=== PATIENT | female | born 1955 | race Caucasian/White ===

== ENCOUNTER 2020-10-02 11:53 | Emergency (ER) | payer OTHER ==
[~2020-10-02] VITALS: Ht 157.5 cm; Wt 77.1 kg
[2020-10-02 12:53] LABS: Basophils # (auto) 0 10 ^3/uL (0-0.2); Basophils % (auto) 0.9 % (0.0-2.0); Eosinophils # (auto) 0.1 10 ^3/uL (0-0.8); Eosinophils % (auto) 1.1 % (0.0-7.0); Hemoglobin 12.1 g/dL (12.2-16.2); Lymphocytes # (auto) 1.2 10 ^3/uL (0.4-5.4); Lymphocytes % (auto) 24.4 % (10.0-50.0); Mean Corpuscular Hemoglobin 29.7 pg (28.0-32.0); Mean Corpuscular Hgb Conc. 33.6 g/dL (32.0-36.0); Mean Corpuscular Volume 88.4 fL (80.0-100.0); Monocytes # (auto) 0.6 10 ^3/uL (0-1.3); Neutrophils # (auto) 3.1 10 ^3/uL (1.6-8.6); Neutrophils % (auto) 61.6 % (37.0-80.0); Platelet Count (auto) 280 10^3/uL (140-450); Red Blood Cells 4.07 10^6/uL (4.0-5.20); Red Cell Distribution Width 14.8 % (11.8-14.3); White Blood Cell 5.1 10^3/uL (4.4-10.8)
[2020-10-02 13:08] LABS: Albumin 3.6 g/dL (3.4-5.0); Anion Gap 4 (5-15); Blood Urea Nitrogen 17 mg/dL (7-18); Calcium 8.5 mg/dL (8.5-10.1); Carbon Dioxide 28 mmol/L (21-32); Chloride 108 mmol/L (98-107); Glucose 112 mg/dL (74-106); Magnesium 2.2 mg/dL (1.6-2.6); Potassium 3.7 mmol/L (3.5-5.1); Sodium 140 mmol/L (136-145)
[2020-10-02 13:13] LABS: Alanine Aminotransferase 17 U/L (13-56); Alkaline Phosphatase 133 U/L (45-117); Aspartate Aminotransferase 14 U/L (15-37); BUN/Creatinine Ratio 16.7; Bilirubin, Total 0.2 mg/dL (0.2-1.0); GFR African American 70 mL/min; GFR Non-African American 58 mL/min
[2020-10-02 14:28] VITALS: BP 101/41
== END 2020-10-02 14:31 | disposition home or self-care (01) ==
LOC: ER 11:53
DX: K21.9 Gastro-esophageal reflux disease without esophagitis (principal); Z20.822 Contact with and (suspected) exposure to COVID-19; Z87.891 Personal history of nicotine dependence; Z88.5 Allergy status to narcotic agent
CPT/HCPCS: 36415; 71045; 80053; 83735; 84484; 85025; 85379; 87426; 93005